=== PATIENT | female | born 1990 | race Two or more races ===

== ENCOUNTER 2022-07-02 12:31 | Outpatient (CLI) | payer OTHER | END 2022-07-02 13:45 | disposition home or self-care (01) | LOC: PRENATAL 12:31 | PROVIDERS: ATTEND Obstetrics & Gynecology Maternal & Fetal Medicine | DX: O35.9XX0 Maternal care for (suspected) fetal abnormality and damage, unspecified, not applicable or unspecified (principal); O35.3XX0 Maternal care for (suspected) damage to fetus from viral disease in mother, not applicable or unspecified; O28.1 Abnormal biochemical finding on antenatal screening of mother; O26.20 Pregnancy care for patient with recurrent pregnancy loss, unspecified trimester; Z3A.28 28 weeks gestation of pregnancy ==

== ENCOUNTER 2022-08-27 10:53 | Outpatient (CLI) | payer OTHER | END 2022-08-27 12:07 | disposition home or self-care (01) | LOC: PRENATAL 10:53 | PROVIDERS: ATTEND Obstetrics & Gynecology Maternal & Fetal Medicine | DX: O26.849 Uterine size-date discrepancy, unspecified trimester (principal); O36.8199 Decreased fetal movements, unspecified trimester, other fetus; O26.20 Pregnancy care for patient with recurrent pregnancy loss, unspecified trimester; O28.1 Abnormal biochemical finding on antenatal screening of mother; Z3A.36 36 weeks gestation of pregnancy ==